=== PATIENT | female | born 1950 | race Hispanic/Latino ===

== ENCOUNTER 2017-05-16 05:31 | Emergency (ER) | payer OTHER ==
--- NOTE | 2017-05-16 08:07 | RAD ---
PORTABLE CHEST ONE VIEW: 05/16/2017 6:14 a.m. HISTORY: Dyspnea. Cough. Shortness of breath. FINDINGS: There are changes of a median sternotomy. The heart size is normal. The lungs are well expanded wit hout pneumothoraces or pleural effusions. No lobar consolidation is seen. Increased interstitial ma rkings are seen in the infrahilar regions. In the absence of a previous exam, it cannot be said with certainty if these are chronic or acute changes. POS: [facility]
== END 2017-05-16 08:50 | disposition home or self-care (01) ==
LOC: ERS 05:31
DX: J45.901 Unspecified asthma with (acute) exacerbation (principal); J06.9 Acute upper respiratory infection, unspecified; I10 Essential (primary) hypertension; E11.9 Type 2 diabetes mellitus without complications; E78.00 Pure hypercholesterolemia, unspecified; F17.210 Nicotine dependence, cigarettes, uncomplicated
CPT/HCPCS: 71010; 93005; 94640; 94760; J7620